=== PATIENT | female | born 1990 | race Caucasian/White ===

== ENCOUNTER 2024-11-29 14:26 | Emergency (ER) | payer OTHER, SELFPAY ==
[2024-11-29 14:41] VITALS: BP 115/76; PULSE 74; RESP 16; TEMP 36.7; O2SAT 100; BMI 26.6
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
[2024-11-29] MEDS: Acetaminophen 325 MG TABLET 975 MG PO (15:56)
--- NOTE | 2024-11-29 22:35 | PC.NURSE ---
no answer from WR at 1707
== END 2024-11-29 22:36 | disposition left against medical advice (07) ==
PROVIDERS: Emergency Provider Internal Medicine
DX: R10.9 Unspecified abdominal pain (principal)
CPT/HCPCS: 99282; 99283